=== PATIENT | female | born 1980 | race Caucasian/White ===

== ENCOUNTER 2016-06-01 09:09 | Outpatient (CLI) | payer OTHER ==
--- NOTE | 2016-06-01 15:09 | DIAGNOSTIC IMAGING REPORT ---
PROCEDURE: MG BILATERAL SCREENING W/CAD INDICATION: Screening, remote family history of breast cancer in the grandmother TECHNIQUE: Standard CC and MLO views bilaterally. Computer aided detection was used. COMPARISON: None. FINDINGS: Dense fibroglandular tissue is present bilaterally. There are two, vague, rounded, partially obscured densities in the lateral left breast on the CC view, likely in the upper outer quadrant amidst dense glandular tissue. They measure about 11 and 12 mm a piece. There is no suspicious architectural distortion or clustered microcalcifications. IMPRESSION: 1. Two densities in the upper outer left breast, probably cysts, however given lack of comparisons, further evaluation with spot compression, direct lateral left mammogram, and ultrasound is recommended for full evaluation. 2. The patient will be contacted. RESULT CODE: 0- Incomplete; needs additional evaluation. A. A negative report should not delay biopsy if a dominant or clinically suspicious mass is present. 10-15% of cancers are not identified by x-ray. B. A negative report may reinforce clinical impression. C. Adenosis and dense breasts may obscure an underlying neoplasm. D. False positive reports average 6-10%. E.. A yearly screening mammogram is recommended. A reminder letter will be scheduled.
== END 2016-06-01 23:00 ==
LOC: MAM SRH 09:09
DX: Z12.31 Encounter for screening mammogram for malignant neoplasm of breast (principal)

== ENCOUNTER 2016-06-14 15:06 | Outpatient (CLI) | payer OTHER ==
--- NOTE | 2016-06-14 16:18 | DIAGNOSTIC IMAGING REPORT ---
PROCEDURE: MG UNILATERAL DIAG-LT W/CAD INDICATION: F/U ABN CHRISTIANO TECHNIQUE: Lateral digital views of left breast. In addition, spot compression CC and MLO views were obtained of the left upper outer quadrant Finally, high-resolution left breast ultrasound was performed (18 mHz). COMPARISON: Mammogram 06/01/2016. FINDINGS: MAMMOGRAM: Computer-aided detection applied. Dense pattern without definite focal masses. No suspicious microcalcifications. BREAST ULTRASOUND: There are multiple simple cysts in the left upper outer quadrant, largest 5 mm at the 1 o'clock position 2-3 cm from the nipple. There are no solid masses or abnormal acoustic shadowing. IMPRESSION: 1. Multiple left upper outer quadrant simple cysts. Recommend routine follow-up mammogram. 2. Results discussed with the patient. RESULT CODE: 2- Benign finding(s). A. A negative report should not delay biopsy if a dominant or clinically suspicious mass is present. 10-15% of cancers are not identified by x-ray. B. A negative report may reinforce clinical impression. C. Adenosis and dense breasts may obscure an underlying neoplasm. D. False positive reports average 6-10%. E.. A yearly screening mammogram is recommended. A reminder letter will be scheduled.
== END 2016-06-14 23:00 ==
LOC: MAM SRH 15:06
DX: R92.8 Other abnormal and inconclusive findings on diagnostic imaging of breast (principal)